=== PATIENT | male | born 1960 | race Caucasian/White ===

== ENCOUNTER 2023-09-02 11:49 | Outpatient (CLI) | payer BC, SELFPAY | END 2023-09-02 11:50 | disposition home or self-care (01) | PROVIDERS: PCP Family Medicine; Visit Provider Family Medicine | DX: R22.1 Localized swelling, mass and lump, neck (principal); Z13.6 Encounter for screening for cardiovascular disorders; Z13.220 Encounter for screening for lipoid disorders | CPT/HCPCS: 80053; 80061 ==

== ENCOUNTER 2023-09-13 09:34 | Outpatient (CLI) | payer BC, SELFPAY ==
--- NOTE | 2023-09-13 09:45 | CRLHL7_ITS ---
For Patients: As a result of the Century Cures Act, medical imaging exams and procedure reports are released immediately into your electronic medical record. You may view this report before your referring provider. If you have questions, please contact your health care provider. Indication: LOCALIZED SWELLING, PALPABLE LUMP Technique: Grayscale and color Doppler ultrasound of the left lateral neck soft tissues performed. Comparison: None Findings: Circumscribed solid mass noted within the subcutaneous fat just beneath the skin measuring 1.6 x 1.0 x 2.1 cm. No abnormal vascularity. Echotexture is isoechoic with the adjacent fat. Impression: Subcutaneous lipoma. Dictated by John Desai MD @ 09/13/2023 10:53:10 AM (Electronically Signed)
== END 2023-09-13 09:35 | disposition home or self-care (01) ==
LOC: US 09:35
PROVIDERS: PCP Family Medicine; Visit Provider Family Medicine
DX: R22.1 Localized swelling, mass and lump, neck (principal); D17.0 Benign lipomatous neoplasm of skin and subcutaneous tissue of head, face and neck
CPT/HCPCS: 76536